=== PATIENT | male | born 1990 | race Caucasian/White ===

== ENCOUNTER 2021-11-07 08:02 | Inpatient (IN) | payer OTHER, SELFPAY ==
--- NOTE | 2021-11-07 | ECG_ITS ---
Test Reason : medical clearance Blood Pressure : / mmHG Vent. Rate : 085 BPM Atrial Rate : 085 BPM P-R Int : 146 ms QRS Dur : 094 ms QT Int : 334 ms P-R-T Axes : 068 079 042 degrees QTc Int : 397 ms Normal sinus rhythm Normal ECG When compared with ECG of 10-APR-2009 20:09, No significant change was found Referred By: Caron Humphrey Electronically Signed By:Tre Champagne
[2021-11-07 08:11] VITALS: BP 150/100; BP 153/91; PULSE 100; PULSE 85; RESP 17; TEMP 36.7; O2SAT 100; BMI 23.6
[2021-11-07 08:36] LABS: Appearance Urine CLEAR; Color Urine YELLOW; Glucose Urine UA NEG (NEG); Leukocyte Esterase Urine NEG (NEG); Nitrite Urine NEG (NEG); PH 5.5 (5.0-8.0); Specific Gravity - Urine >= 1.030 (1.005-1.025); Urine Blood NEG (NEG); Urine Ketones NEG (NEG); Urine Protein NEG (NEG-TRACE)
--- NOTE | 2021-11-07 08:57 | ED.PSYCH ---
HPI - Psych General Chief Complaint: Psychiatric Symptoms Stated Complaint: CRISIS,H/O BIPOLAR SCHIZOPHRENIA PER EMS Time Seen by Provider: 11/07/21 08:29 Source: patient and EMS Mode of arrival: EMS History of Present Illness HPI Narrative: 30-year-old male with reported psychiatric PMHx BIBA on Section 12 from [facility] for making SI statements online. Patient reports paranoid/delusional thinking, believes he is in a different dimension, that he can shape shift, and that the illuminati is speaking with him. Patient reports that he was pronounced recently but was not and then brought to a back hidden room in [facility]. Also talks about if the dream world or reality is real. Denies HI. States he does not care about his life. Admits to THC use, denies other illicit drugs or EtOH MD complaint: hallucinations Onset (ago): unknown Related Data Home Medications Medication Instructions Recorded Confirmed ibuprofen 200 mg tablet (Advil) 400 mg PO Q6H PRN 11/07/21 11/07/21 Allergies Allergy/AdvReac Type Severity Reaction Status Date / Time No Known Allergies Allergy Unverified 05/24/20 16:25 Review of Systems Review of Systems: Constitutional: No Fever, No Chills, No Malaise Cardiovascular: No Chest Pain, No SOB Respiratory: No Cough, No Dyspnea Gastrointestinal: No Nausea, No Vomiting, No Abdominal pain Musculoskeletal: No joint pain Skin: No Skin Lesions, No rash Neuro: No Weakness Psych: No Anxiety/Panic, + Depression, + SI, No HI, +AH/VH, No Social Issues ROS limited secondary to patient's acute mental state Yes all other systems are reviewed and are negative [facility] Past Medical History Attestation statement: The following information was validated with the patient. Social History Social History Advance Directives: No Physical Exam Vital Signs: Vital Signs: Last Vital Signs Temp 98.3 F 11/07/21 14:03 Pulse 85 11/07/21 14:03 Resp 16 11/07/21 14:03 BP 133/65 11/07/21 14:03 Pulse Ox 100 11/07/21 14:03 BMI result Body Mass Index 23.6 Const: General: cooperative, alert and awake HENMT: Head: Yes normal to inspection and Yes atraumatic Ears: hearing grossly normal bilaterally General nose exam: Normal external nose present Face and sinus: Yes normal facial exam Eyes: General: appearance normal, both eyes and all related structures EOM: EOMs intact bilaterally Neck: Neck: Yes normal visual inspection and Yes no meningeal signs Resp: Effort & Inspection: normal respiratory effort and no respiratory distress Auscultation: clear to auscultation bilaterally Cardio: Rate: regular rate Heart sounds: S1 normal heart sound present and S2 normal heart sound present GI: Inspection: Yes normal to inspection Palpation (GI): Soft to palpation, nontender and no guarding Skin: Rashes: no rashes Wounds: no wounds Neuro: General: no meningeal signs and CN's II-XI intact bilaterally Gait exam (Neuro): Normal gait present Extrem: General: Yes normal to inspection Psych: Speech and movement: Pressured speech present Thought process: Illogical thought process present Thought content: no homicidality, Paranoid delusions present, delusions, Depressive thoughts present and Derealization present Insight: Poor insight present (Psych) Course Course Course Narrative: Per care team/family request they were concerned with possible neurosyphilis or undiagnosed/untreated syphilis and patient also reported HIV/AIDs during my evaluation, unclear. Will obtain testing -BUN mildly elevated, bilirubin mildly elevated, UA negative, THC positive -physician observation initiated at 11:55am as patient needs more time to be evaluated by N. -1410--patient was evaluated by care team and is now an inpatient bed search, will be going to today -1514--patient adamantly refusing COVID-19 swab, multiple people have attempted to obtain however patient persistently refusing, patient aware this is halting his admission. Will wait until patient is agreeable or requires sedation for behaviors MDM - Psych MDM Narrative Medical decision making narrative: 30-year-old male with reported psychiatric PMHx [facility]. Patient reports paranoid/delusional thinking, believes he is in a different dimension, that he can shape shift, and that the illuminati is speaking with him. On exam vital signs stable, paranoid delusional thinking appreciated with depressive thoughts. Concern for psychiatric illness, will rule out organic causes Plan: Labs, UA, ALVAREZ, COVID Differential Diagnosis Differential diagnosis: Likely acute psychosis, drug-induced psychotic disorder and schizoaffective disorder Medical Records Attestation: I reviewed the patient's medical records. Lab Data Attestation: I reviewed the patient's lab results. Result diagrams: 11/07/21 08:53 11/07/21 08:53 Labs: Lab Results 11/07/21 11/07/21 11/07/21 Range/Units 08:29 08:29 08:53 WBC 6.7 (4.8-10.8) X10*3/uL RBC 5.13 (4.60-5.80) X10*6/uL Hgb 15.2 (14.0-18.0) g/dl Hct 45.8 (42.0-52.0) % MCV 89.3 (80.0-98.0) fL MCH 29.6 (27.0-33.0) pg MCHC 33.2 (31.0-36.0) g/dl RDW 12.8 (11.0-16.0) % Plt Count 225 (160-400) X10*3/uL MPV 10.1 (9.4-12.4) fL Immature Gran % (Auto) 0.3 (0.0-0.4) % Neut % (Auto) 54.1 (45-73) % Lymph % (Auto) 31.2 (20-40) % [place] % (Auto) 11.3 H (2-11) % Eos % (Auto) 2.4 (0-4) % Baso % (Auto) 0.7 (0-2) % Lymph # (Auto) 2.1 (1.2-4.9) X10*3/uL [place] # (Auto) 0.8 (0.1-1.2) X10*3/uL Eos # (Auto) 0.2 (0.0-0.4) X10*3/uL Baso # (Auto) 0.1 (0.0-0.2) X10*3/uL Abs Immat Gran (auto) 0.02 (0.00-0.03) X10*3/uL Absolute Neuts (auto) 3.7 (2.0-8.3) x10*3/uL Absolute Nucleated RBC 0.000 (0.0-0.012) X10*3/uL Nucleated RBC % (auto) 0.0 (0.0-0.2) /100WBC Sodium (135-145) mmol/L Potassium (3.3-5.1) mmol/L Chloride (96-108) mmol/L Carbon Dioxide (22-29) mmol/L Anion Gap (12-20) BUN (9-16) mg/dL Creatinine (0.5-1.4) mg/dL Estim Creat Clear Calc Estimated GFR Random Glucose (60-115) mg/dL Calcium (8.4-10.2) mg/dL Magnesium (1.6-2.6) mg/dL Total Bilirubin (0.0-1.0) mg/dL Direct Bilirubin (0.0-0.5) mg/dL AST (5-37) U/L ALT (0-40) U/L Alkaline Phosphatase (39-117) U/L Total Protein (6.5-8.0) g/dL Albumin (3.5-5.0) g/dL Urine Color YELLOW Urine Appearance CLEAR Urine pH 5.5 (5.0-8.0) Ur Specific [place] >= 1.030 H (1.005-1.025) Urine Protein NEG (NEG-TRACE) MG/DL Urine Glucose (UA) NEG (NEG) MG/DL Urine Ketones NEG (NEG) MG/DL Urine Blood NEG (NEG) Urine Nitrite NEG (NEG) Ur Leukocyte Esterase NEG (NEG) Urine Opiates Screen Not Detected (Not Detect) Urine Fentanyl Screen Not Detected (Not Detect) Ur Barbiturates Screen Not Detected (Not Detect) Ur Phencyclidine Scrn Not Detected (Not Detect) Ur Amphetamines Screen Not Detected (Not Detect) U Benzodiazepines Scrn Not Detected (Not Detect) Urine Cocaine Screen Not Detected (Not Detect) U Marijuana (THC) Screen POSITIVE H (Not Detect) HIV 1&2 Ab/P24 Ag 4thGn (Nonreactive) 11/07/21 11/07/21 Range/Units 08:53 08:53 WBC (4.8-10.8) X10*3/uL RBC (4.60-5.80) X10*6/uL Hgb (14.0-18.0) g/dl Hct (42.0-52.0) % MCV (80.0-98.0) fL MCH (27.0-33.0) pg MCHC (31.0-36.0) g/dl RDW (11.0-16.0) % Plt Count (160-400) X10*3/uL MPV (9.4-12.4) fL Immature Gran % (Auto) (0.0-0.4) % Neut % (Auto) (45-73) % Lymph % (Auto) (20-40) % [place] % (Auto) (2-11) % Eos % (Auto) (0-4) % Baso % (Auto) (0-2) % Lymph # (Auto) (1.2-4.9) X10*3/uL [place] # (Auto) (0.1-1.2) X10*3/uL Eos # (Auto) (0.0-0.4) X10*3/uL Baso # (Auto) (0.0-0.2) X10*3/uL Abs Immat Gran (auto) (0.00-0.03) X10*3/uL Absolute Neuts (auto) (2.0-8.3) x10*3/uL Absolute Nucleated RBC (0.0-0.012) X10*3/uL Nucleated RBC % (auto) (0.0-0.2) /100WBC Sodium 140 (135-145) mmol/L Potassium 4.6 (3.3-5.1) mmol/L Chloride 103 (96-108) mmol/L Carbon Dioxide 32 H (22-29) mmol/L Anion Gap 10 L (12-20) BUN 19 H (9-16) mg/dL Creatinine 1.23 (0.5-1.4) mg/dL Estim Creat Clear Calc 100.2 Estimated GFR > 60 Random Glucose 117 H (60-115) mg/dL Calcium 9.7 (8.4-10.2) mg/dL Magnesium 2.1 (1.6-2.6) mg/dL Total Bilirubin 1.5 H (0.0-1.0) mg/dL Direct Bilirubin 0.5 (0.0-0.5) mg/dL AST 17 (5-37) U/L ALT 15 (0-40) U/L Alkaline Phosphatase 49 (39-117) U/L Total Protein 6.7 (6.5-8.0) g/dL Albumin 4.2 (3.5-5.0) g/dL Urine Color Urine Appearance Urine pH (5.0-8.0) Ur Specific [place] (1.005-1.025) Urine Protein (NEG-TRACE) MG/DL Urine Glucose (UA) (NEG) MG/DL Urine Ketones (NEG) MG/DL Urine Blood (NEG) Urine Nitrite (NEG) Ur Leukocyte Esterase (NEG) Urine Opiates Screen (Not Detect) Urine Fentanyl Screen (Not Detect) Ur Barbiturates Screen (Not Detect) Ur Phencyclidine Scrn (Not Detect) Ur Amphetamines Screen (Not Detect) U Benzodiazepines Scrn (Not Detect) Urine Cocaine Screen (Not Detect) U Marijuana (THC) Screen (Not Detect) HIV 1&2 Ab/P24 Ag 4thGn Nonreactive (Nonreactive) Discharge Plan Discharge Clinical Impression: Acute psychosis Patient Disposition: Admitted As Inpatient
[2021-11-07 08:58] LABS: MANUAL DIFF FLAG NO
[2021-11-07 09:01] LABS: Basophils Absolute Auto 0.1 X10*3/uL (0.0-0.2); Basophils Percent Auto 0.7 % (0-2); Eosinophils Absolute Auto 0.2 X10*3/uL (0.0-0.4); Eosinophils Percent Auto 2.4 % (0-4); Hematocrit 45.8 % (42.0-52.0); Hemoglobin 15.2 g/dl (14.0-18.0); Imm Gran Abs Auto 0.02 X10*3/uL (0.00-0.03); Imm Gran Pct Auto 0.3 % (0.0-0.4); Lymphocytes Absolute Auto 2.1 X10*3/uL (1.2-4.9); Lymphocytes Percent Auto 31.2 % (20-40); Mean Corpuscular HGB Conc 33.2 g/dl (31.0-36.0); Mean Corpuscular Hemoglobin 29.6 pg (27.0-33.0); Mean Corpuscular Volume 89.3 fL (80.0-98.0); Mean Platelet Volume 10.1 fL (9.4-12.4); Monocytes Absolute Auto 0.8 X10*3/uL (0.1-1.2); Monocytes Percent Auto 11.3 % (2-11); Neutrophils Absolute Auto 3.7 x10*3/uL (2.0-8.3); Neutrophils Percent Auto 54.1 % (45-73); Platelet Count 225 X10*3/uL (160-400); Red Blood Count 5.13 X10*6/uL (4.60-5.80); Red Cell Distribution Width 12.8 % (11.0-16.0); White Blood Count 6.7 X10*3/uL (4.8-10.8)
[2021-11-07 09:16] LABS: Alanine Aminotransferase 15 U/L (0-40); Albumin Level 4.2 g/dL (3.5-5.0); Alkaline Phosphatase 49 U/L (39-117); Anion Gap 10 (12-20); Aspartate Amino Transferase 17 U/L (5-37); Bilirubin Direct 0.5 mg/dL (0.0-0.5); Bilirubin Total 1.5 mg/dL (0.0-1.0); Blood Urea Nitrogen 19 mg/dL (9-16); Calcium 9.7 mg/dL (8.4-10.2); Carbon Dioxide 32 mmol/L (22-29); Chloride 103 mmol/L (96-108); Creatinine Clr Calc Pharmacy 100.2; Estimated Glomerular Filt Rate > 60; Glucose Random 117 mg/dL (60-115); Magnesium 2.1 mg/dL (1.6-2.6); Potassium 4.6 mmol/L (3.3-5.1); Sodium 140 mmol/L (135-145); Total Protein 6.7 g/dL (6.5-8.0)
--- NOTE | 2021-11-07 09:18 | PHA.MEDREC ---
Pharmacy Consult ? Medication Reconciliation Pharmacy has completed the medication reconciliation. Patient reports he no longer takes Depakote or Seroquel because they make him feel weird. Lolita Barrios, RicardoD
[2021-11-07 10:31] LABS: Amphetamine Screen Urine Not Detected (Not Detect); Barbiturates, Urine Not Detected (Not Detect); Benzodiazepines Screen Urine Not Detected (Not Detect); Cannabinoid Screen Urine POSITIVE (Not Detect); Cocaine Screen Urine Not Detected (Not Detect); Fentanyl, urine Not Detected (Not Detect); Opiate Screen Urine Not Detected (Not Detect); Phencyclidine Screen Urine Not Detected (Not Detect)
--- NOTE | 2021-11-07 10:31 | MHC.CARE ---
Mother - Jenny [phone] Father Michele [phone]
[2021-11-07 11:03] LABS: HIV AB/AG Nonreactive (Nonreactive); HIV Num 1 0.11 S/CO (0.00-0.99)
--- NOTE | 2021-11-07 13:21 | PC.NURSE ---
patient refusing COVID testing. stated to [facility] I do not want that DNA test . will attempt to speak with patient regaurding test.
[2021-11-07 14:03] VITALS: BP 133/65; PULSE 85; RESP 16; TEMP 36.8; O2SAT 100
[2021-11-07 17:50] LABS: COVID-19 Test Negative (Negative); IDNOW Serial# 16C4AD1C
[2021-11-07 17:59] VITALS: BP 125/77; PULSE 85; RESP 17; TEMP 37.2; O2SAT 98
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
[2021-11-07 22:50] VITALS: BP 141/86; PULSE 91; RESP 18; TEMP 36.5; O2SAT 96
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
[2021-11-08 08:51] LABS: Syphilis Screen Reactive (Nonreactive)
[2021-11-08 09:15] VITALS: BP 136/85; PULSE 89; RESP 17; TEMP 36.8; O2SAT 100
[2021-11-08 09:39] LABS: Estimated Average Glucose 97 mg/dL; Hemoglobin A1C 131.6274 umol/L
[2021-11-08 09:44] LABS: Cholesterol 162 mg/dL; HDL Cholesterol 56 mg/dL; LDL Cholesterol Calculated 87 mg/dl; Triglycerides 98 mg/dL
[2021-11-08 10:06] LABS: Free T4 (Free Thyroxine) 0.95 ng/dL (0.71-1.85)
[2021-11-08 10:29] LABS: Folate 9.8 ng/mL (> or = 4.0); Vitamin B12 560 pg/mL (200-900)
[2021-11-08] MEDS: hydrOXYzine HCL 25 MG TABLET PO (14:06)
--- NOTE | 2021-11-08 16:24 | P.PNPSI_ITS ---
Subjective Subjective Date of Service: 11/08/21 Reason For Visit: delusional, SI Interim History: pt presents as highly disorganized, essentially producing word salad. talking about daniel, whether he should hold the world up, which configuration of arm positions is required, touching the book of preet to become president of katharina ( what planet are we on?), are we all chimeras? i'm part reptilian. talking about shape-shifting, saying he wants to be a cat or a bird. unable to have a linear, productive conversation. pt ultimately respectfully removes himself from the room when the topic of medications arises. per staff, uncooperative with admission. verbally agitated. doesn't want Tx. refusing meds. i don't need to be here. endorsed SI and paranoia/delusions at a dmission. irritable. seen in milieu briefly. unable to return to his mother's house. Mental Status Exam Mental Status Exam Narrative: A&O. Well groomed, good hygiene, in hospital attire, gross, normal body habitus. Good eye contact, attentive. No Tics or Tremors. No abnormal involuntary movements. Calm, cooperative, engaged. Non-pressured speech, spontaneous with regular rate and rhythm, normal volume and prosody. No prolonged speech latency or dysarthria. affect is constricted but overall appropriate, euthymic. Endorses grandiose delusional thought content. Thoughts are bizarre and disor ganized. No known cognitive or memory impairment. Insight/ Judgment severely impaired. Diagnostics Vital Signs (24Hr): Vital Signs - 24 hr 11/07/21 17:59 11/07/21 22:50 11/08/21 09:15 Temperature 98.9 F 97.7 F 98.3 F Pulse Rate 85 91 89 Respiratory Rate 17 18 17 Blood Pressure 125/77 141/86 H 136/85 Pulse Oximetry 98 96 100 BMI result Body Mass Index 23.6 Labs Results: 11/07/21 08:53 11/07/21 08:53 Labs: Laboratory Results - last 48 hr 11/07/21 11/07/21 11/07/21 08:29 08:29 08:53 WBC 6.7 RBC 5.13 Hgb 15.2 Hct 45.8 MCV 89.3 MCH 29.6 MCHC 33.2 RDW 12.8 Plt Count 225 MPV 10.1 Immature Gran % (Auto) 0.3 Neut % (Auto) 54.1 Lymph % (Auto) 31.2 [place] % (Auto) 11.3 H Eos % (Auto) 2.4 Baso % (Auto) 0.7 Lymph # (Auto) 2.1 [place] # (Auto) 0.8 Eos # (Auto) 0.2 Baso # (Auto) 0.1 Abs Immat Gran (auto) 0.02 Absolute Neuts (auto) 3.7 Absolute Nucleated RBC 0.000 Nucleated RBC % (auto) 0.0 Sodium Potassium Chloride Carbon Dioxide Anion Gap BUN Creatinine Estim Creat Clear Calc Estimated GFR Random Glucose Estimat Average Glucose Hemoglobin A1c % Calcium Magnesium Total Bilirubin Direct Bilirubin AST ALT Alkaline Phosphatase Total Protein Albumin Triglycerides Cholesterol LDL Cholesterol, Calc HDL Cholesterol Vitamin B12 Folate TSH Free T4 Urine Color YELLOW Urine Appearance CLEAR Urine pH 5.5 Ur Specific [place] >= 1.030 H Urine Protein NEG Urine Glucose (UA) NEG Urine Ketones NEG Urine Blood NEG Urine Nitrite NEG Ur Leukocyte Esterase NEG Urine Opiates Screen Not Detected Urine Fentanyl Screen Not Detected Ur Barbiturates Screen Not Detected Ur Phencyclidine Scrn Not Detected Ur Amphetamines Screen Not Detected U Benzodiazepines Scrn Not Detected Urine Cocaine Screen Not Detected U Marijuana (THC) Screen POSITIVE H T.pallidum Ab (EIA) COVID-19 (TERRELL) COVID-19 Clin Com HIV 1&2 Ab/P24 Ag 4thGn 11/07/21 11/07/21 11/07/21 08:53 08:53 08:53 WBC RBC Hgb Hct MCV MCH MCHC RDW Plt Count MPV Immature Gran % (Auto) Neut % (Auto) Lymph % (Auto) [place] % (Auto) Eos % (Auto) Baso % (Auto) Lymph # (Auto) [place] # (Auto) Eos # (Auto) Baso # (Auto) Abs Immat Gran (auto) Absolute Neuts (auto) Absolute Nucleated RBC Nucleated RBC % (auto) Sodium 140 Potassium 4.6 Chloride 103 Carbon Dioxide 32 H Anion Gap 10 L BUN 19 H Creatinine 1.23 Estim Creat Clear Calc 100.2 Estimated GFR > 60 Random Glucose 117 H Estimat Average Glucose Hemoglobin A1c % Calcium 9.7 Magnesium 2.1 Total Bilirubin 1.5 H Direct Bilirubin 0.5 AST 17 ALT 15 Alkaline Phosphatase 49 Total Protein 6.7 Albumin 4.2 Triglycerides Cholesterol LDL Cholesterol, Calc HDL Cholesterol Vitamin B12 Folate TSH Free T4 Urine Color Urine Appearance Urine pH Ur Specific [place] Urine Protein Urine Glucose (UA) Urine Ketones Urine Blood Urine Nitrite Ur Leukocyte Esterase Urine Opiates Screen Urine Fentanyl Screen Ur Barbiturates Screen Ur Phencyclidine Scrn Ur Amphetamines Screen U Benzodiazepines Scrn Urine Cocaine Screen U Marijuana (THC) Screen T.pallidum Ab (EIA) Reactive A COVID-19 (TERRELL) COVID-19 Clin Com HIV 1&2 Ab/P24 Ag 4thGn Nonreactive 11/07/21 11/08/21 11/08/21 17:20 09:03 09:03 WBC RBC Hgb Hct MCV MCH MCHC RDW Plt Count MPV Immature Gran % (Auto) Neut % (Auto) Lymph % (Auto) [place] % (Auto) Eos % (Auto) Baso % (Auto) Lymph # (Auto) [place] # (Auto) Eos # (Auto) Baso # (Auto) Abs Immat Gran (auto) Absolute Neuts (auto) Absolute Nucleated RBC Nucleated RBC % (auto) Sodium Potassium Chloride Carbon Dioxide Anion Gap BUN Creatinine Estim Creat Clear Calc Estimated GFR Random Glucose Estimat Average Glucose 97 Hemoglobin A1c % 5.0 Calcium Magnesium Total Bilirubin Direct Bilirubin AST ALT Alkaline Phosphatase Total Protein Albumin Triglycerides 98 Cholesterol 162 LDL Cholesterol, Calc 87 HDL Cholesterol 56 Vitamin B12 Folate TSH 3.40 Free T4 0.95 Urine Color Urine Appearance Urine pH Ur Specific [place] Urine Protein Urine Glucose (UA) Urine Ketones Urine Blood Urine Nitrite Ur Leukocyte Esterase Urine Opiates Screen Urine Fentanyl Screen Ur Barbiturates Screen Ur Phencyclidine Scrn Ur Amphetamines Screen U Benzodiazepines Scrn Urine Cocaine Screen U Marijuana (THC) Screen T.pallidum Ab (EIA) COVID-19 (TERRELL) Negative COVID-19 Clin Com See Note HIV 1&2 Ab/P24 Ag 4thGn 11/08/21 09:03 WBC RBC Hgb Hct MCV MCH MCHC RDW Plt Count MPV Immature Gran % (Auto) Neut % (Auto) Lymph % (Auto) [place] % (Auto) Eos % (Auto) Baso % (Auto) Lymph # (Auto) [place] # (Auto) Eos # (Auto) Baso # (Auto) Abs Immat Gran (auto) Absolute Neuts (auto) Absolute Nucleated RBC Nucleated RBC % (auto) Sodium Potassium Chloride Carbon Dioxide Anion Gap BUN Creatinine Estim Creat Clear Calc Estimated GFR Random Glucose Estimat Average Glucose Hemoglobin A1c % Calcium Magnesium Total Bilirubin Direct Bilirubin AST ALT Alkaline Phosphatase Total Protein Albumin Triglycerides Cholesterol LDL Cholesterol, Calc HDL Cholesterol Vitamin B12 560 Folate 9.8 TSH Free T4 Urine Color Urine Appearance Urine pH Ur Specific [place] Urine Protein Urine Glucose (UA) Urine Ketones Urine Blood Urine Nitrite Ur Leukocyte Esterase Urine Opiates Screen Urine Fentanyl Screen Ur Barbiturates Screen Ur Phencyclidine Scrn Ur Amphetamines Screen U Benzodiazepines Scrn Urine Cocaine Screen U Marijuana (THC) Screen T.pallidum Ab (EIA) COVID-19 (TERRELL) COVID-19 Clin Com HIV 1&2 Ab/P24 Ag 4thGn Medications Medications Current Medications Acetaminophen (Acetaminophen 325 Mg Tablet) 650 mg PO Q6H PRN PRN Reason: Headache/Pain Mild Scale (1-3) Al Hydroxide/Mg Hydroxide (Magnesium Hydrox/Alum Hydrox 30 Ml Oral.Susp) 30 ml PO Q6H PRN PRN Reason: Heartburn/Nausea Hydroxyzine HCl (Hydroxyzine Hcl 25 Mg Tablet) 25 mg PO Q6H PRN PRN Reason: Anxiety Last Admin: 11/08/21 14:06 Dose: 25 mg Documented by: Magnesium Hydroxide (Milk Of Magnesia 30 Ml Oral.Susp) 30 ml PO DAILY PRN PRN Reason: Constipation Trazodone HCl (Trazodone Hcl 50 Mg Tablet) 50 mg PO BEDTIME PRN PRN Reason: Insomnia Allergies Allergies Allergy/AdvReac Type Severity Reaction Status Date / Time No Known Allergies Allergy Unverified 05/24/20 16:25 Assessment & Plan Assessment & Plan (1) Unspecified schizophrenia, chronic condition with acute exacerbation: Status: Acute Code(s): F20.9 - Schizophrenia, unspecified Plan Vincenzo is a 30 y.o. Person identifying as transgender, prefers pronouns they/them, carries a dx of unspecified schizophrenia. They arrived to [facility] [place] [place] ED on 11/07/21 via ambulance on a Section 12a from due to family reporting pt was m aking SI statements online via social media. Pt is reporting this was misunderstood and that his writing was fictional. Per chart, hx of IPLOC for paranoid and disorganized thought content. Has been non-adherent on medication. Pt currently denies mood concerns. Denies SI/SIB/HI upon inquiry. No substance use or ETOH use concerns. Plan: Will collect collateral info, work on assessment and engagement for safety monitoring/ planning. Monitor response to medications. Monitor for safety in the milieu. Discharge on stabilization. Patient seen. Chart reviewed. Discussed with team. Obtain collateral contact info?as needed off haldol 5 BID for psychosis rpr and treponema pallidum assays POS at OSH. recheck. I spent ___25___ minutes with the patient and/or on the patient floor today, greater than?50% of which was spent counseling/coordinating care. Reason for contiued inpatient stay Substantial Risk for: inability to function and rapid decompensation
[2021-11-08 18:00] VITALS: BP 130/72; PULSE 68; RESP 16; TEMP 36.6; O2SAT 99
[2021-11-09 09:30] VITALS: BP 140/77; PULSE 86; RESP 16; TEMP 36.9; O2SAT 100
--- NOTE | 2021-11-09 14:28 | P.PNPSI_ITS ---
Subjective Subjective Date of Service: 11/09/21 Reason For Visit: delusional, SI Interim History: Vincenzo remains disorganized and preoccupied. He is somewhat bizarre in his interactions and is at times intrusive. He has not taken haldol and states he does not need it and does not need to be in the hospital. He has preliminary positive serology for syphilis. It is not clear if he has act leslee symptoms. Will wait for final result and then evaluate further. Medication Compliance: No Side effects from medications: No Attending Groups: No Review of Systems Acute medical concerns: No Positive serology for syphilis Mental Status Exam Mental Status Exam Narrative: A&O. Well groomed, good hygiene, in hospital attire, gross, normal body habitus. Good eye contact, attentive. No Tics or Tremors. No abnormal involuntary movements. Calm, cooperative, engaged. Non-pressured speech, spontaneous with regular rate and rhythm, normal volume and prosody. No prolonged speech latency or dysarthria. affect is constricted but overall appropriate, euthymic. Endorses grandiose delusional thought content. Thoughts are bizarre and disorganized. No known cognitive or memory impairment. Insight/ Judgment severely impaired. Diagnostics Vital Signs (24Hr): Vital Signs - 24 hr 11/08/21 18:00 11/09/21 09:30 Temperature 98 F 98.5 F Pulse Rate 68 86 Respiratory Rate 16 16 Blood Pressure 130/72 140/77 H Pulse Oximetry 99 100 BMI result Body Mass Index 23.6 Labs Results: 11/07/21 08:53 11/07/21 08:53 Labs: Laboratory Results - last 48 hr 11/07/21 11/07/21 11/08/21 08:53 17:20 09:03 Estimat Average Glucose 97 Hemoglobin A1c % 5.0 Triglycerides Cholesterol LDL Cholesterol, Calc HDL Cholesterol Vitamin B12 Folate TSH Free T4 T.pallidum Ab (EIA) Reactive A COVID-19 (TERRELL) Negative COVID-19 Clin Com See Note 11/08/21 11/08/21 09:03 09:03 Estimat Average Glucose Hemoglobin A1c % Triglycerides 98 Cholesterol 162 LDL Cholesterol, Calc 87 HDL Cholesterol 56 Vitamin B12 560 Folate 9.8 TSH 3.40 Free T4 0.95 T.pallidum Ab (EIA) COVID-19 (TERRELL) COVID-19 Clin Com Medications Medications Current Medications Acetaminophen (Acetaminophen 325 Mg Tablet) 650 mg PO Q6H PRN PRN Reason: Headache/Pain Mild Scale (1-3) Al Hydroxide/Mg Hydroxide (Magnesium Hydrox/Alum Hydrox 30 Ml Oral.Susp) 30 ml PO Q6H PRN PRN Reason: Heartburn/Nausea Haloperidol (Haloperidol 5 Mg Tablet) 5 mg PO BID JAONIE Last Admin: 11/09/21 09:48 Dose: Not Given Documented by: Hydroxyzine HCl (Hydroxyzine Hcl 25 Mg Tablet) 25 mg PO Q6H PRN PRN Reason: Anxiety Last Admin: 11/08/21 14:06 Dose: 25 mg Documented by: Magnesium Hydroxide (Milk Of Magnesia 30 Ml Oral.Susp) 30 ml PO DAILY PRN PRN Reason: Constipation Trazodone HCl (Trazodone Hcl 50 Mg Tablet) 50 mg PO BEDTIME PRN PRN Reason: Insomnia Allergies Allergies Allergy/AdvReac Type Severity Reaction Status Date / Time No Known Allergies Allergy Unverified 05/24/20 16:25 Assessment & Plan Assessment & Plan (1) Unspecified schizophrenia, chronic condition with acute exacerbation: Status: Acute Code(s): F20.9 - Schizophrenia, unspecified Plan Vincenzo is a 30 y.o. Person identifying as transgender, prefers pronouns they/them, carries a dx of unspecified schizophrenia. They [place] [facility] [facility] on 11[place]07[place]21 via ambulance on a Section 12a from due to family reporting pt was making SI statements online via social media. Pt is reporting this was mi erstood and that his writing was fictional. Per chart, hx of IPLOC for paranoid and disorganized thought content. Has been non-adherent on medication. Pt currently denies mood concerns. Denies SI/SIB/HI upon inquiry. No substance use or ETOH use concerns. Plan: Will collect collateral info, work on assessment and engagement for safety monitoring/ planning. Monitor response to medications. Monitor for safety in the milieu. Discharge on stabilization. Patient seen. Chart reviewed. Discussed with team. Obtain collateral contact info?as needed off haldol 5 BID for psychosis rpr and treponema pallidum assays POS at OSH. recheck. 11/09/21 - no change to the above I spent minutes with the patient and/or on the patient floor today, greater than?50% of which was spent counseling/coordinating care. Patient educated on: diagnosis and medication risk/benefits Informed Consent: does not understand Reason for contiued inpatient stay Substantial Risk for: rapid decompensation
--- NOTE | 2021-11-09 14:30 | PC.NURSE ---
EIA was reactive on 11/07/21. FTA/ABS was sent on 11/08/21. Per lab will not get result for 3-[address] Bi Haney informed and hospitalist consult was ordered. Per Dr Bi Haney, Tarah Cancino NP advises wait for FTA/ ABS result prior to starting treatment.
[2021-11-09 21:11] VITALS: BP 134/81; PULSE 80; RESP 16; O2SAT 98
[2021-11-09] MEDS: hydrOXYzine HCL 25 MG TABLET PO (22:22)
[2021-11-10 09:05] VITALS: BP 138/84; PULSE 104; RESP 16; TEMP 36.6; O2SAT 98
--- NOTE | 2021-11-10 17:36 | P.PNPSI_ITS ---
Subjective Subjective Date of Service: 11/10/21 Reason For Visit: delusional, SI Interim History: Vincenzo was polite, but guarded. He states that he does not want to take medications, since he does not think that there is a need. Medication Compliance: Yes Side effects from medications: No Review of Systems Acute medical concerns: No Mental Status Exam Mental Status Exam Narrative: A&O. Well groomed, good hygiene, in hospital attire, gross, normal body habitus. Good eye contact, attentive. No Tics or Tremors. No abnormal involuntary movements. Calm, cooperative, engaged. Non-pressured speech, spontaneous with regular rate and rhythm, normal volume and prosody. No prolonged speech latency or dysarthria. affect is constricted but overall appropriate, euthymic. Endorses grandiose delusional thought content. Thoughts are bizarre and disorganized. No known cognitive or memory impairment. Insight/ Judgment severely impaired. Diagnostics Vital Signs (24Hr): Vital Signs - 24 hr 11/09/21 21:11 11/10/21 09:05 Temperature 97.8 F Pulse Rate 80 104 H Respiratory Rate 16 16 Blood Pressure 134/81 138/84 Pulse Oximetry 98 98 BMI result Body Mass Index 23.6 Labs Results: 11/07/21 08:53 11/07/21 08:53 Medications Medications Current Medications Acetaminophen (Acetaminophen 325 Mg Tablet) 650 mg PO Q6H PRN PRN Reason: Headache/Pain Mild Scale (1-3) Al Hydroxide/Mg Hydroxide (Magnesium Hydrox/Alum Hydrox 30 Ml Oral.Susp) 30 ml PO Q6H PRN PRN Reason: Heartburn/Nausea Haloperidol (Haloperidol 5 Mg Tablet) 5 mg PO BID [facility] Last Admin: 11/10/21 09:13 Dose: Not Given Documented by: Hydroxyzine HCl (Hydroxyzine Hcl 25 Mg Tablet) 25 mg PO Q6H PRN PRN Reason: Anxiety Last Admin: 11/09/21 22:22 Dose: 25 mg Documented by: Magnesium Hydroxide (Milk Of Magnesia 30 Ml Oral.Susp) 30 ml PO DAILY PRN PRN Reason: Constipation Trazodone HCl (Trazodone Hcl 50 Mg Tablet) 50 mg PO BEDTIME PRN PRN Reason: Insomnia Allergies Allergies Allergy/AdvReac Type Severity Reaction Status Date / Time No Known Allergies Allergy Unverified 05/24/20 16:25 Assessment & Plan Assessment & Plan (1) Unspecified schizophrenia, chronic condition with acute exacerbation: Status: Acute Code(s): F20.9 - Schizophrenia, unspecified Plan Vincenzo is a 30 y.o. Person identifying as transgender, prefers pronouns they/them, carries a dx of unspecified schizophrenia. [place] [facility] [place] via ambulance on a Section 12a from due to family reporting pt was making SI statements online via social media. Pt is reporting this was misu nderstood and that his writing was fictional. Per chart, hx of IPLOC for paranoid and disorganized thought content. Has been non-adherent on medication. Pt currently denies mood concerns. Denies SI/SIB/HI upon inquiry. No substance use or ETOH use concerns. Plan: Will collect collateral info, work on assessment and engagement for safety monitoring/ planning. Monitor response to medications. Monitor for safety in the milieu. Discharge on stabilization. Patient seen. Chart reviewed. Discussed with team. Obtain collateral contact info?as needed off haldol 5 BID for psychosis rpr and treponema pallidum assays POS at OSH. recheck. 11/09/21 - no change to the above 11/10/21 - no change I spent minutes with the patient and/or on the patient floor today, greater than?50% of which was spent counseling/coordinating care. Patient educated on: diagnosis and medication risk/benefits Informed Consent: further education needed Reason for contiued inpatient stay Substantial Risk for: rapid decompensation
[2021-11-10 19:50] VITALS: BP 127/73; PULSE 86; RESP 16; TEMP 36.7; O2SAT 97
[2021-11-11] MEDS: hydrOXYzine HCL 25 MG TABLET PO ×2 (00:44→22:30)
[2021-11-11 08:57] VITALS: BP 136/88; PULSE 81; RESP 15; TEMP 36.7; O2SAT 98
[2021-11-11] MEDS: HaloperidoL 1 MG TABLET 2 MG PO (11:45)
--- NOTE | 2021-11-11 14:51 | HO.PSYCHPN ---
Subjective Subjective Date of Service: 11/11/21 Reason For Visit: delusional, SI Interim History: pt amenable to interview, polite and cooperative. states he had declined to take the haldol bcse he was concerned of the side effect of heart failure about which he had read. MD reassured him that is an extremely rare occurrence, one MD has never come across. pt ultimately agreed to trial of the medication, but at 2 mg dose rather than 5 mg. he stated he was interested in cooperating with treatment team in effort to leave the hospital more quickly. haldol 2 mg dose ordered for one time, now. per staff, 12-B up tomorrow. refusing haldol, denying SIBI. denying dep/anx SI/HI. talking of astral projecting, that he has visited hell. visible, interactive with peers. got vistaril to help sleep last night. labile, psychotic, awake until 0100, up by 0700. Mental Status Exam Mental Status Exam Narrative: A&O. Well groomed, good hygiene, in hospital attire, gross, normal body habitus. Good eye contact, attentive. No Tics or Tremors. No abnormal involuntary movements. Calm, cooperative, engaged. Non-pressured speech, spontaneous with regular rate and rhythm, normal volume and prosody. No prolonged speech latency or dysarthria. affect is constricted but overall appropriate, euthymic. Endorses grandiose delusional thought content. Thoughts are bizarre and disorganized. No known cognitive or memory impairment. Insight/ Judgment severely impaired. Diagnostics Vital Signs (24Hr): Vital Signs - 24 hr 11/10/21 19:50 11/11/21 08:57 Temperature 98.0 F 98.1 F Pulse Rate 86 81 Respiratory Rate 16 15 Blood Pressure 127/73 136/88 Pulse Oximetry 97 98 BMI result Body Mass Index 23.6 Labs Results: 11/07/21 08:53 11/07/21 08:53 Medications Medications Current Medications Acetaminophen (Acetaminophen 325 Mg Tablet) 650 mg PO Q6H PRN PRN Reason: Headache/Pain Mild Scale (1-3) Al Hydroxide/Mg Hydroxide (Magnesium Hydrox/Alum Hydrox 30 Ml Oral.Susp) 30 ml PO Q6H PRN PRN Reason: Heartburn/Nausea Haloperidol (Haloperidol 5 Mg Tablet) 5 mg PO BID JOANIE Last Admin: 11/11/21 08:53 Dose: Not Given Documented by: Hydroxyzine HCl (Hydroxyzine Hcl 25 Mg Tablet) 25 mg PO Q6H PRN PRN Reason: Anxiety Last Admin: 11/11/21 00:44 Dose: 25 mg Documented by: Magnesium Hydroxide (Milk Of Magnesia 30 Ml Oral.Susp) 30 ml PO DAILY PRN PRN Reason: Constipation Trazodone HCl (Trazodone Hcl 50 Mg Tablet) 50 mg PO BEDTIME PRN PRN Reason: Insomnia Allergies Allergies Allergy/AdvReac Type Severity Reaction Status Date / Time No Known Allergies Allergy Unverified 05/24/20 16:25 Assessment & Plan Assessment & Plan (1) Unspecified schizophrenia, chronic condition with acute exacerbation: Status: Acute Code(s): F20.9 - Schizophrenia, unspecified Plan Vincenzo is a 30 y.o. Person identifying as transgender, prefers pronouns they/them, carries a dx of unspecified schizophrenia. They arrived to [facility] on 11/07/21 via ambulance on a Section 12a from due to family reporting pt was making SI statements online via social media. Pt is reporting this was misunderstood and that his writing was fictional. Per chart, hx of IPLOC for paranoid and disorganized thought content. Has been non-adherent on medication. Pt currently denies mood concerns. Denies SI/SIB/HI upon inquiry. No substance use or ETOH use concerns. Plan: Will collect collateral info, work on assessment and engagement for safety monitoring/ planning. Monitor response to medications. Monitor for safety in the milieu. Discharge on stabilization. Patient seen. Chart reviewed. Discussed with team. Obtain collateral contact info?as needed offer haldol 5 BID for psychosis. pt refusing until 11/11, when he took a one-time dose of haldol 2 mg. rpr and treponema pallidum assays POS at OSH. rechecking, results pending. will need to commit or have him sign in by 11/12. I spent ___25___ minutes with the patient and/or on the patient floor today, greater than?50% of which was spent counseling/coordinating care. Reason for contiued inpatient stay Substantial Risk for: inability to function and rapid decompensation
[2021-11-11 18:00] VITALS: BP 134/82; PULSE 90; RESP 18; TEMP 36.4; O2SAT 100
[2021-11-11] MEDS: HaloperidoL 5 MG TABLET PO (20:14)
[2021-11-12] MEDS: HaloperidoL 5 MG TABLET PO (08:45)
[2021-11-12 08:47] VITALS: BP 142/94; PULSE 78; RESP 17; TEMP 36.6; O2SAT 100
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
[2021-11-14 09:46] LABS: Treponema pallidum Ab FTA ABS Reactive (Nonreactive)
[2021-11-14 15:56] LABS: T.Pallidum Particle Agg Test Reactive (Nonreactive)
[2021-11-20 10:06] LABS: RPR Quantitative Reactive 1:2 (Nonreactive)
== END 2021-11-12 12:37 | disposition home or self-care (01) | DRG 750 ==
LOC: HO.ED 14:11 → HO.PADLT16 22:53
PROVIDERS: Physician Assistant; Admitting Provider Registered Nurse; Emergency Provider Emergency Medicine; Visit Provider Psychiatry & Neurology Psychiatry
DX: F20.9 Schizophrenia, unspecified (principal); R45.851 Suicidal ideations; Z59.02 Unsheltered homelessness; Z79.1 Long term (current) use of non-steroidal anti-inflammatories (NSAID); Z79.899 Other long term (current) drug therapy
CPT/HCPCS: 36415; 80048; 80061; 80076; 80307; 81003; 82607; 82746; 83036; 83735; 84439; 84443; 85025; 86592; 86780; 87389; 87635; 93005; 99285